=== PATIENT | male | born 1965 | race Hispanic/Latino ===

== ENCOUNTER 2016-03-24 08:06 | Day surgery (SDC) | payer OTHER ==
[2016-03-24] MEDS ORDERED: NACL 0.9% 500 ML 500 ML IV SCH (09:00)
[2016-03-24 09:09] LABS: Basophils % (Auto) 1.1 % (0.0-1.8); Eosinophils % (Auto) 3.2 % (0.0-4.3); Hematocrit 46.7 % (35.5-45.6); Hemoglobin 16.3 gm/dl (11.8-15.2); Mean Corpuscular HGB Conc 35 % (32-34); Mean Corpuscular Hemoglobin 32 pg (28-32); Mean Corpuscular Volume 92 fl (84-94); Platelet Count 229 K/mm3 (140-440); Red Blood Count 5.06 M/mm3 (3.65-5.03); Red Cell Distribution Width 12.2 % (13.2-15.2); White Blood Count 6.2 K/mm3 (4.5-11.0)
[2016-03-24 09:16] LABS: Anion Gap 21 mmol/L; Blood Urea Nitrogen 24 mg/dL (9-20); Calcium 8.8 mg/dL (8.4-10.2); Carbon Dioxide 24 mmol/L (22-30); Chloride 93.2 mmol/L (98-107); Glucose 121 mg/dL (75-100); Potassium 3.3 mmol/L (3.6-5.0); Sodium 135 mmol/L (137-145)
[2016-03-24 09:18] LABS: INR 0.89 (0.87-1.13)
[2016-03-24] MEDS ORDERED: K-DUR PO ONE ×2 (09:46→09:47)
[2016-03-24] MEDS ORDERED: HEPARIN/NS 5000 UNIT/500ML(CATH LAB) 1,000 ML IR ONE (09:55)
[2016-03-24] MEDS ORDERED: NITROGLYCERIN SYRINGE 3 ML ONE (09:56)
[2016-03-24] MEDS: CALAN ONE ×2 (10:07→10:18)
[2016-03-24] MEDS: HEPARIN 10,000 UNITS/10 ML ONE ×2 (10:09→10:18)
[2016-03-24] MEDS: SUBLIMAZE ONE ×2 (10:09→10:15)
[2016-03-24] MEDS: VERSED ONE ×2 (10:10→10:15)
[2016-03-24] MEDS: XYLOCAINE 2% INFILTRATI ONE ×2 (10:13→10:15)
--- NOTE | 2016-03-24 10:46 | Short Stay Summary ---
Short Stay Documentation - History H&P: obtained from office - Allergies and Medications Current Medications: Allergies No Known Allergies Allergy (Verified 03/24/16 08:28) Home Medications Medication Instructions Recorded Confirmed Last Taken Type Aspirin [Aspirin TAB] 325 mg PO DAILY 03/24/16 03/24/16 03/24/16 06:00 History 325mg Bupropion HCl [Bupropion HCl Sr] 150 mg PO BID 03/24/16 03/24/16 03/24/16 06:00 History 150mg Fenofibrate [Lofibra] 160 mg PO QDAY 03/24/16 03/24/16 03/24/16 06:00 History 160mg Losartan [Cozaar] 100 mg PO QDAY 03/24/16 03/24/16 03/24/16 06:00 History 100mg amLODIPine [Norvasc] 10 mg PO DAILY 03/24/16 03/24/16 03/24/16 06:00 History 10mg Active Medications Sodium Chloride (Nacl 0.9% 500 Ml) 500 mls @ 50 mls/hr IV DIRECT JORGE Stop: 03/24/16 18:59 Last Admin: 03/24/16 09:30 Dose: 50 mls/hr - Physical exam General appearance: no acute distress Integumentary: no rash HEENT: Atraumatic Lungs: Clear to auscultation Breasts: deferred Heart: Regular rate Gastrointestinal: normal Male Genitourinary: deferred Female Genitourinary: deferred Rectal Exam: deferred Extremities: no ischemia Neurological: Normal gait - Brief post op/procedure progress note Date of procedure: 03/24/16 Pre-op diagnosis: Stable angina Post-op diagnosis: same Procedure: LHC, LV gram Anesthesia: MAC Findings: 100% proximal RCA with left to right collaterals Surgeon: ЕЛЕНА SANDOVAL Estimated blood loss: none Pathology: none Condition: stable - Hospital course Hospital course: Uneventful - Disposition Condition at discharge: Good Disposition: DISCHARGED TO HOME OR SELFCARE Short Stay Discharge Plan Activity: advance as tolerated Weight Bearing Status: Partial Weight Bearing Diet: low fat, low cholesterol, low salt
[2016-03-24 13:13] VITALS: BP 140/80
--- NOTE | 2016-03-24 21:28 | Cardiac Catherization Report ---
LEFT HEART CATHETERIZATION INDICATION: Stable angina, abnormal myocardial perfusion scan. ORDERING PHYSICIAN: Ruth Parker MD PROCEDURES PERFORMED: 1. Selective left and right coronary angiography. 2. Left ventriculography. DESCRIPTION OF PROCEDURE: After obtaining written consent and after documenting a negative Cameron's test, the patient was draped using sterile technique. A 2% lidocaine was injected into the right wrist. A 5-[place] vascular sheath was inserted into the right radial artery. A 5-[place] JL3.5 catheter was used to selectively engage the left coronary artery. A 5-[place] JR4 catheter was used to selectively engage the right coronary artery. A 5-[place] JR4 catheter was used to perform a hand injected LV gram. No complications occurred during the procedure. ESTIMATED BLOOD LOSS: Minimal. SPECIMEN REMOVED: None. FINDINGS: HEMODYNAMICS: The aortic pressure was , LV systolic pressure was 121 mmHg, and the left ventricular end-diastolic pressure was measured at 15 mmHg. CARDIAC STRUCTURES: The left ventricle is normal in size and systolic function. The left ventricular ejection fraction is measured at 60%. No wall motion abnormality detected. CORONARY ANATOMY: 1. This is a right dominant circulation. 2. The left main is angiographically normal. 3. The LAD has evidence of a tubular stenosis noted in the proximal segment with 30% luminal obstruction. The remaining segments of the LAD has mild luminal irregularities with less than 25% luminal stenosis. There is a very small caliber first diagonal artery, approximately 1-2 mm in diameter. There is an 80% focal stenosis noted in the proximal to mid segment of this first diagonal artery. 4. The left circumflex artery has mild nonobstructive luminal irregularities with less than 25% luminal stenosis. 5. The right coronary artery is 100% occluded proximally. There are excellent collaterals filling the right coronary artery from the left coronary circulation. IMPRESSION: 1. Nonobstructive coronary artery disease noted in the left circulation. There is an 80% stenosis in the proximal to mid segment of a very small caliber first diagonal artery measuring 1-2 mm in diameter. This lesion is not amenable to intervention. 2. The right coronary artery is 100% occluded proximally. Excellent collaterals are filling the distal right coronary arteries from the left coronary circulation. 3. Normal left ventricular size and systolic function. 4. Normal left-sided filling pressures. RECOMMENDATIONS: Continue current medical therapy and risk factor modifications. Follow up with referring sound art instructor. JOB# [id number] JEY/KIRAN
== END 2016-03-24 13:00 | disposition home or self-care (01) ==
LOC: OPU 08:06
PROVIDERS: ATTEND Internal Medicine Cardiovascular Disease
DX: I25.118 Atherosclerotic heart disease of native coronary artery with other forms of angina pectoris (principal); I25.82 Chronic total occlusion of coronary artery; F32.9 Major depressive disorder, single episode, unspecified; I10 Essential (primary) hypertension; Z98.890 Other specified postprocedural states
CPT/HCPCS: 36415; 80048; 85025; 85610; 85730; 93005; 93010; 93458; C1894; J1644; J2250; J3010; J7040; Q9967